=== PATIENT | female | born 1965 | race African-American/Black ===

== ENCOUNTER 2018-04-21 17:06 | Emergency (ER) | payer SELFPAY ==
[~2018-04-21] VITALS: Ht 167.6 cm; Wt 105.0 kg
[2018-04-21] MEDS ORDERED: IBUPROFEN 600MG TABLET PO ONE (18:30)
[2018-04-21 18:40] VITALS: BP 208/99
== END 2018-04-21 19:57 | disposition home or self-care (01) ==
LOC: ER 17:06
DX: S00.83XA Contusion of other part of head, initial encounter (principal); I10 Essential (primary) hypertension; V49.49XA Driver injured in collision with other motor vehicles in traffic accident, initial encounter; Y93.89 Activity, other specified; Y92.89 Other specified places as the place of occurrence of the external cause; Y99.8 Other external cause status; Z90.49 Acquired absence of other specified parts of digestive tract; Z88.0 Allergy status to penicillin
CPT/HCPCS: 70486; 99284

== ENCOUNTER 2021-02-10 22:40 | Emergency (ER) | payer SELFPAY ==
[~2021-02-10] VITALS: Ht 167.6 cm; Wt 100.0 kg
[2021-02-10] MEDS ORDERED: KETOROLAC 60MG/2ML VIAL IM STA (23:58)
[2021-02-11 00:50] VITALS: BP 183/84
[2021-02-11] MEDS ORDERED: NAPR-681 PO (01:53)
== END 2021-02-11 02:08 | disposition home or self-care (01) ==
LOC: ER 22:40
DX: S69.82XA Other specified injuries of left wrist, hand and finger(s), initial encounter (principal); X58.XXXA Exposure to other specified factors, initial encounter; Y93.89 Activity, other specified; Y92.89 Other specified places as the place of occurrence of the external cause; Y99.8 Other external cause status; Z90.49 Acquired absence of other specified parts of digestive tract; Z98.890 Other specified postprocedural states; Z88.0 Allergy status to penicillin
CPT/HCPCS: 73130; 81025; 96372; 99283; J1885

== ENCOUNTER 2024-07-21 17:17 | Emergency (ER) | payer OTHER ==
[~2024-07-21] VITALS: Ht 157.5 cm; Wt 86.0 kg
[~2024-07-21 17:17] MED LIST: ATEN50TA PO
[2024-07-21 17:23] VITALS: O2SAT 98
[2024-07-21] MEDS: MORPHINE SULFATE 4 MG/ML INJ (FOR IV/IM USE) IV STA (20:26)
[2024-07-21 20:28] LABS: BASOPHILS % 1.3 % (0.0-2.0); EOSINOPHILS % 0.4 % (0.0-5.0); HEMATOCRIT. 32.6 % (36.0-48.0); HEMOGLOBIN. 10.8 g/dL (12.0-16.0); MEAN CORPUSCULAR HEMOGLOBIN 27.3 pg (28.0-32.0); MEAN CORPUSCULAR HGB CONC 33.2 g/dL (31.0-37.0); MEAN CORPUSCULAR VOLUME 82.2 fL (81.0-99.0); MEAN PLATELET VOLUME 9.2 fl (7.4-10.4); NEUTROPHILS % 64.3 % (40.0-76.0); PLATELET 263 x1000/uL (130-400); RED BLOOD CELL COUNT 3.97 mill/uL (4.2-5.4); WHITE BLOOD COUNT 8.7 x1000/uL (4.5-11.0)
[2024-07-21 20:34] LABS: CHLORIDE 100 mEq/L (98-107); POTASSIUM 3.9 mEq/L (3.5-5.1); SODIUM 137 mEq/L (136-145)
[2024-07-21 20:35] LABS: CALCIUM 9.3 mg/dL (8.7-10.4); CARBON DIOXIDE 27 mEq/L (21-32)
[2024-07-21 20:40] LABS: PROTHROMBIN TIME 37.2 sec (9.6-11.0); UREA NITROGEN BLOOD 18 mg/dL (9-23)
[2024-07-21 20:42] LABS: ALANINE AMINOTRANSFERASE 18 IU/L (10-49); ALBUMIN 3.8 g/dL (3.2-4.8); ASPARTATE AMINOTRANSFERASE 14 IU/L (<34); BILIRUBIN TOTAL 0.2 mg/dL (0.1-1.0); PROTEIN TOTAL 7.1 g/dL (6.0-8.3)
[2024-07-21 20:43] LABS: BILIRUBIN DIRECT < 0.1 mg/dL (<=3.0)
[2024-07-21 20:55] LABS: GLUCOSE 414 mg/dL (70-105)
[2024-07-21 22:32] LABS: CLARITY URINE CLEAR (CLEAR); COLOR URINE YELLOW (YELLOW); GLUCOSE URINE 3+ (NEGATIVE); KETONES URINE NEGATIVE (NEGATIVE); LEUKOCYTE ESTERASE URINE NEGATIVE (NEGATIVE); NITRITE URINE NEGATIVE (NEGATIVE); OCCULT BLOOD URINE NEGATIVE (NEGATIVE); PH URINE 7.5 (4.5-8.0); PROTEIN URINE NEGATIVE (NEGATIVE); SPECIFIC GRAVITY URINE 1.049 (1.005-1.030); UROBILINOGEN URINE 0.2 E.U./dL (0.2-1.0)
[2024-07-21] MEDS: SODIUM CHLORIDE 0.9% 1,000 ML IV ONE (22:35)
[2024-07-21] MEDS: INSULIN REGULAR (HUMULIN R) 1000UNITS/10ML VIAL SUBCUT NR (22:44)
[2024-07-21] MEDS: POTASSIUM CHLORIDE 20MEQ/PACKET PO NR (22:44)
[2024-07-21 22:50] LABS: BACTERIA URINE NONE SEEN; RBC URINE NONE SEEN /hpf (0-2); SQUAMOUS EPITHELIAL CELL URINE RARE /lpf (RARE/1+); WBC URINE NONE SEEN /hpf (0-2)
[2024-07-21] MEDS: IOHEXOL-300 100 ML BOTTLE ONE (23:26)
[2024-07-21] MEDS: HYDRALAZINE 20MG/ML VIAL IV ONE (23:38)
[2024-07-21 23:57] VITALS: BP 174/89; PULSE 76; RESP 16; TEMP 36.3; O2SAT 99
== END 2024-07-21 23:58 | disposition home or self-care (01) ==
LOC: ER 17:17
DX: R10.11 Right upper quadrant pain (principal); R19.00 Intra-abdominal and pelvic swelling, mass and lump, unspecified site; M32.9 Systemic lupus erythematosus, unspecified; I48.91 Unspecified atrial fibrillation; I10 Essential (primary) hypertension; E11.9 Type 2 diabetes mellitus without complications; Z86.73 Personal history of transient ischemic attack (TIA), and cerebral infarction without residual deficits; Z79.899 Other long term (current) drug therapy; Z79.4 Long term (current) use of insulin; Z90.49 Acquired absence of other specified parts of digestive tract; Z88.0 Allergy status to penicillin
CPT/HCPCS: 80076; 80048; 81003; 82962; 83690; 85025; 85610; 36415; 74177; 96372; 96374; 96375; 99285; Q9967; J0360; J1815; J2270; Z7610

== ENCOUNTER 2025-04-22 16:16 | Emergency (ER) | payer MEDICAID ==
[~2025-04-22] VITALS: Ht 167.6 cm; Wt 100.0 kg
[~2025-04-22 16:16] MED LIST changes: +INSU100I28 SQ; +NIFE-32 PO
[2025-04-22 16:19] VITALS: O2SAT 96
[2025-04-22] MEDS ORDERED: TC025C15 TP (17:37)
[2025-04-22 17:44] VITALS: BP 130/77; PULSE 87; RESP 18; TEMP 36.8; O2SAT 96
== END 2025-04-22 17:45 | disposition home or self-care (01) ==
LOC: ER 16:16
DX: L29.9 Pruritus, unspecified (principal); E11.9 Type 2 diabetes mellitus without complications; I10 Essential (primary) hypertension; Z79.899 Other long term (current) drug therapy; Z86.73 Personal history of transient ischemic attack (TIA), and cerebral infarction without residual deficits
CPT/HCPCS: 99282

== ENCOUNTER 2025-04-26 15:30 | Emergency (ER) | payer MEDICAID ==
[~2025-04-26] VITALS: Ht 170.2 cm; Wt 95.0 kg
[~2025-04-26 15:30] MED LIST changes: +TC025C15 TP
[2025-04-26 15:50] VITALS: O2SAT 95
[2025-04-26] MEDS ORDERED: SULF1TAB48 MT (17:31)
[2025-04-26] MEDS ORDERED: CEPH500C2 MT (17:31)
[2025-04-26 17:53] VITALS: BP 194/110; PULSE 85; RESP 18; TEMP 36.8; O2SAT 100
== END 2025-04-26 17:57 | disposition home or self-care (01) ==
LOC: ER 15:30
DX: L03.90 Cellulitis, unspecified (principal); I10 Essential (primary) hypertension; E11.9 Type 2 diabetes mellitus without complications; Z86.73 Personal history of transient ischemic attack (TIA), and cerebral infarction without residual deficits; Z88.0 Allergy status to penicillin; Z79.899 Other long term (current) drug therapy
CPT/HCPCS: 99283